=== PATIENT | male | born 1975 | race Caucasian/White ===

== ENCOUNTER 2021-08-30 17:20 | Emergency (ER) | payer BC ==
[~2021-08-30] VITALS: Ht 172.7 cm; Wt 68.2 kg
[2021-08-30 17:35] VITALS: TEMP 99
[2021-08-30 18:10] LABS: BASO % 0.2 % (0.0-2.0); EOS # 0.1 (0.0-0.7); EOS % 1.9 % (0-4.0); GRAN # 2.5 (1.4-6.5); GRAN % 60.1 % (42.2-75.2); HEMATOCRIT 40.5 % (42.0-52.0); HEMOGLOBIN 13.5 g/dl (13.5-18.0); LYMPH % 23.6 % (20.0-51.0); MEAN CELL VOLUME 96 fl (80.0-100.0); MEAN CORPUSCULAR HEMOGLOBIN 32 pg (27.0-31.0); MEAN CORPUSCULAR HGB CONC 33 g/dl (33.0-37.0); MEAN PLATELET VOLUME 9.3 fl (7.4-10.4); MONO # 0.6 (0.1-0.6); PLATELET COUNT 191 K/mm3 (130-400); RED BLOOD COUNT 4.23 M/mm3 (4.20-5.60); REDCELL DISTRIBUTION WIDTH-CV 12.4 % (11.5-14.5)
[2021-08-30 18:30] LABS: ALANINE AMINOTRANSFERASE 27 U/L (0-55); ALBUMIN 3.9 gm/dL (3.5-5.0); ALKALINE PHOSPHATASE 74 U/L (0-750); ANION GAP 10 mmol/L; AST,SGOT 25 U/L (5-34); BILIRUBIN,TOTAL 0.5 mg/dL (0.2-1.2); BLOOD UREA NITROGEN 13 mg/dL (9-21); CALCIUM 9.1 mg/dL (8.4-10.2); CARBON DIOXIDE 26 mEq/L (22-29); CHLORIDE 104 mmol/L (98-107); GLUCOSE 135 mg/dL (70-99); LIPASE < 10 U/L (8-78); POTASSIUM 3.9 mmol/L (3.5-4.5); SODIUM 140 mmol/L (136-145); TOTAL PROTEIN 6.9 gm/dL (6.2-8.1)
[2021-08-30 18:38] LABS: TROPONIN-I < 0.010 ng/mL (0.00-0.033)
[2021-08-30 19:21] VITALS: BP 143/85; PULSE 75
== END 2021-08-30 19:24 | disposition home or self-care (01) ==
LOC: COL.ER 17:20
PROVIDERS: Physician Assistant
DX: R07.89 Other chest pain (principal); E10.9 Type 1 diabetes mellitus without complications

== ENCOUNTER 2023-12-22 17:17 | Emergency (ER) | payer OTHER ==
[~2023-12-22] VITALS: Ht 177.8 cm; Wt 78.2 kg
[2023-12-22 17:33] VITALS: TEMP 98.4
[2023-12-22 18:51] VITALS: BP 123/79; PULSE 68
== END 2023-12-22 18:51 | disposition home or self-care (01) ==
LOC: COL.ER 17:17
DX: R13.10 Dysphagia, unspecified (principal)